=== PATIENT | male | born 1965 | race Caucasian/White ===

== ENCOUNTER 2017-02-09 18:25 | Observation (INO) ==
[2017-02-09 19:18] LABS: Basophils # 0.1 K/mcL (0.0-0.2); Basophils % 0.7 %; Eosinophils # 0.2 K/mcL (0.0-0.6); Hematocrit 44.1 % (37.5-50.1); Hemoglobin 15.7 g/dL (12.9-16.9); Immature Granulocytes % 0.3 % (0-4); Immature Platelets 8.7 % (1.1-6.1); Lymphocytes % 31.6 %; Mean Corpuscular HGB Conc 35.6 g/dL (31.6-35.5); Mean Corpuscular Hemoglobin 30.3 pg (28.0-33.3); Mean Platelet Volume 11.2 fL (9.4-12.4); Monocytes # 0.6 K/mcL (0.0-1.3); Monocytes % 6.1 %; Neutrophils # 5.6 K/mcL (1.6-8.9); Platelet Count 196 K/mcL (140-400); Red Blood Count 5.19 M/mcL (4.19-5.50); Red Cell Distribution Width 13.5 % (11.5-14.5); Segmented Neutrophils % 59.3 %
[2017-02-09 19:28] LABS: BUN/Creatinine Ratio 38 (6-26); Blood Urea Nitrogen 32 mg/dL (8-26); Calcium 9.4 mg/dL (8.6-10.8); Carbon Dioxide 22 mEq/L (19-29); Chloride 107 mEq/L (98-109); Glucose 136 mg/dL (70-99); Osmolality,Calculated 293 (280-300); Potassium 3.8 mEq/L (3.5-4.5); Sodium 137 mEq/L (136-145); eGFR For African Americans > 60 (> 60); eGFR For Non-African Americans > 60 (> 60)
--- NOTE | 2017-02-09 19:35 | Emergency Department Note ---
Disposition Clinical Impression: Chest pain Qualifiers: Chest pain type: unspecified Qualified Code(s): R07.9 - Chest pain, unspecified Aortic stenosis Qualifiers: Cardiac valve disease etiology: etiology unspecified Qualified Code(s): I35.0 - Nonrheumatic aortic (valve) stenosis Disposition: Admitted As Inpatient Condition: Fair Time of Disposition: 19:44 Chest Pain HPI - General Chief Complaint: ED Chest Pain Stated Complaint: CP Time Seen by Provider: 02/09/17 19:25 Source: patient, family Mode of arrival: ambulatory Limitations: language barrier Vital Signs Reviewed: Yes Nursing Notes Reviewed: Yes - History of Present Illness HPI Narrative: Patient developed substernal and left-sided chest pain yesterday while working at the [employer]. Described as "sharp" and "stinging". Pain spontaneously resolved. He developed the same discomfort again today. It did not radiate. He did have some associated dyspnea but no other symptoms. He has a history of some sort of unknown aortic valve problem for which surgical intervention was previously discussed. He is also a type I diabetic Pt complaint: chest pain Onset (ago): day(s) Duration: intermittent Onset: during exertion Pain Location: substernal, left chest Severity: moderate Severity scale (1-10): 7 Quality: aching Pain Radiation: none Improves with: nothing Worsens with: nothing Associated symptoms: Reports: diaphoresis, dyspnea Treatments prior to arrival chest pain: aspirin - Related Data Home Medications Medication Instructions Recorded Confirmed Aspirin Enteric Coated [Aspirin EC] 81 mg PO DAILY 01/04/15 02/09/17 Metformin [Glucophage] 1,000 mg PO BIDWM 01/04/15 02/09/17 GlipiZIDE [Glipizide Xl] 5 mg PO DAILY 02/09/17 02/09/17 Simvastatin [Zocor] 40 mg PO HS 02/09/17 02/09/17 Allergies Allergy/AdvReac Type Severity Reaction Status Date / Time No Known Allergies Allergy Verified 02/09/17 18:32 All systems ED: reviewed and negative except as stated. Constitutional: Reports: as per HPI Eyes: Reports: as per HPI ENT ED: Reports: as per HPI Cardiovascular: Reports: chest pain Respiratory: Reports: dyspnea Gastrointestinal: Reports: as per HPI Genitourinary: Reports: as per HPI Musculoskeletal: Reports: as per HPI Integumentary: Reports: as per HPI Neurological: Reports: as per HPI Psychiatric: Reports: as per HPI Endocrine: Reports: as per HPI Hematological/Lymphatic: Reports: as per HPI Allergic/Immunologic: Reports: as per HPI Chest Pain PMH - Past Medical History Medical history: Reports: coronary artery disease, diabetes, hyperlipidemia, hypertension Surgical history: Reports: non-contributory Psychiatric history: Reports: no psych history - Social History Smoking Status: Never smoker Alcohol use: Reports: occasionally Drug use: Reports: none Physical Exam - General Limitations: language barrier General appearance: alert, in no apparent distress - Head Head exam: atraumatic - Eye Eye exam: Present: normal appearance - ENT ENT exam: normal exam - Neck Neck exam: Present: normal inspection, full ROM - Chest Chest inspection: Present: normal inspection, symmetric chest wall rise - Respiratory Respiratory exam: Present: normal lung sounds bilaterally - Cardiovascular Cardiovascular exam: Present: regular rate, normal rhythm, systolic murmur - Rectal Exam Rectal exam: Present: deferred - Extremities Exam Extremities exam: Present: normal inspection - Neurological Exam Neurological exam: Present: alert, oriented X3, CN II-XII intact - Psychiatric Psychiatric exam: Present: normal affect, normal mood - Skin Skin exam: Present: warm, dry, intact Course Course Narrative: Patient presents with chest pain intermittently since yesterday. He is a primarily Wolof speaker but does speak some Puerto Rican and his is able to help translate. - Reevaluation(s) Reevaluation #1: I will request admission to the medicine service for chest pain evaluation. 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 The nurse will document accordingly. This was conveyed to the admitting team Reevaluation #3: Inventory Control/Shipping Receiving services used with the admitting nurse practitioner present Vital Signs Temperature 97.9 F 02/09/17 18:31 Pulse Rate 75 02/09/17 18:31 Respiratory Rate 16 02/09/17 18:31 Blood Pressure 139/77 02/09/17 18:31 O2 Sat by Pulse Oximetry 96 02/09/17 18:31 Temperature 97.9 F 02/09/17 18:31 Pulse Rate 56 02/09/17 19:43 Respiratory Rate 16 02/09/17 21:11 Blood Pressure 140/78 02/09/17 21:11 O2 Sat by Pulse Oximetry 97 02/09/17 19:43 Oxygen Delivery Oxygen Delivery Room Air Chest Pain - Medical Records Medical records reviewed: Yes I reviewed the patient's medical records. - Lab Data Lab results reviewed: Yes I reviewed the patient's lab results. Result diagrams: 02/09/17 19:11 02/09/17 19:11 Lab Results 02/09/17 02/09/17 02/09/17 Range/Units 19:11 19:11 19:11 WBC 9.5 (4.3-11.1) K/mcL RBC 5.19 (4.19-5.50) M/mcL Hgb 15.7 (12.9-16.9) g/dL Hct 44.1 (37.5-50.1) % MCV 85.0 (83.0-100.0) fL MCH 30.3 (28.0-33.3) pg MCHC 35.6 H (31.6-35.5) g/dL RDW 13.5 (11.5-14.5) % Plt Count 196 (140-400) K/mcL MPV 11.2 (9.4-12.4) fL Immature Gran % 0.3 (0-4) % Seg Neutrophils % 59.3 % Lymphocytes % 31.6 % Monocytes % 6.1 % Eosinophils % 2.0 % Basophils % 0.7 % Neutrophils # 5.6 (1.6-8.9) K/mcL Lymphocytes # 3.0 (0.6-4.6) K/mcL Monocytes # 0.6 (0.0-1.3) K/mcL Eosinophils # 0.2 (0.0-0.6) K/mcL Basophils # 0.1 (0.0-0.2) K/mcL Immature Plt Fraction 8.7 H (1.1-6.1) % Sodium 137 (136-145) mEq/L Potassium 3.8 (3.5-4.5) mEq/L Chloride 107 (98-109) mEq/L Carbon Dioxide 22 (19-29) mEq/L BUN 32 H (8-26) mg/dL Creatinine 0.85 (0.72-1.25) mg/dL Est GFR ( Amer) > 60 (> 60) Est GFR (Non-Af Amer) > 60 (> 60) BUN/Creatinine Ratio 38 H (6-26) Glucose 136 H (70-99) mg/dL Calculated Osmolality 293 (280-300) Calcium 9.4 (8.6-10.8) mg/dL Troponin I 0.03 (0-0.03) ng/mL - Radiology Data Radiology results reviewed: Yes I reviewed the patient's radiology results. - EKG Data EKG attestation: Yes I reviewed and interpreted this EKG. EKG results narrative: Sinus rhythm rate 75 NJ 170 QRS 94 QT/QTC 359/388 LAE
[2017-02-09] MEDS ORDERED: *HR* HYDROcodone/Acet 5/325 mg TABLET PO PRN (21:26)
[2017-02-09] MEDS ORDERED: Naloxone 0.4 MG/ML INJ IVP PRN (21:26)
[2017-02-09] MEDS ORDERED: Ondansetron 4 MG/2 ML VIAL IVP PRN (21:26)
[2017-02-09] MEDS ORDERED: *HR* Morphine 2 MG/ML SYRINGE IVP PRN (21:26)
[2017-02-09] MEDS ORDERED: Acetaminophen 325 MG TABLET PO PRN (21:26)
[2017-02-09] MEDS ORDERED: Dextrose Gel 15 GM PO PRN ×2 (21:31)
[2017-02-09] MEDS ORDERED: D5% in Water 1,000 ML IVC PRN (21:31)
[2017-02-09] MEDS ORDERED: Nitroglycerin 0.4 MG TAB.SUBL SL PRN (21:31)
[2017-02-09] MEDS ORDERED: *HR* Dextrose 50 % in Water (Syg) 50 ML SYRINGE IVP PRN (21:31)
--- NOTE | 2017-02-09 21:54 | Internal Med History&Physical ---
<Manjit Vickers - Last Filed: 02/09/17 22:32> Date of Encounter: 02/09/17 Time of Encounter: 20:30 Assessment and Plan (1) Chest pain Current visit: Yes Status: Acute Patient reports acute chest pain in the left chest for the past 24 hours that is non-radiating and he describes as poking/stinging. 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 Patient has hx of CAD, HTN, HLD, and DM. He states this happened 3-4 years ago and a heart catheterization was done by Dr. Mendoza. Patient was referred to [facility] and states there was a problem with his aortic valve but no surgery was performed. Records from [facility] ordered. He does not take nitroglycerin currently and did not take any today. Takes 81 mg aspirin daily. Will continue aspirin therapy and simvastatin. Initial troponin 0.03. Will trend x2. Echocardiogram ordered. NPO at midnight for a.m. testing. Nuclear pharm stress test ordered. Patient placed on continuous cardiac telemetry. Qualifiers: Chest pain type: other chest pain Qualified Code(s): R07.89 - Other chest pain; R07.8 - Other chest pain (2) Diabetes Current visit: Yes Status: Acute Hx of chronic diabetes that the patient states was controlled by insulin and oral anti-hyperglycemic medications. Now only controlled with oral medications. Will hold patient's glipizide and metformin and administer low-dose correction insulin sliding scale and hypoglycemic protocol. BG checks ACHS. A1c ordered in a.m. labs. Qualifiers: Diabetes mellitus type: type 2 Diabetes mellitus complication status: with unspecified complications Diabetes mellitus terminal gauger insulin use: without terminal gauger use Qualified Code(s): E11.8 - Type 2 diabetes mellitus with unspecified complications (3) HLD (hyperlipidemia) Current visit: Yes Status: Chronic Hx of chronic HLD. Lipid panel ordered in a.m. labs. Continue patient's simvastatin. Qualifiers: Hyperlipidemia type: pure hypercholesterolemia Qualified Code(s): E78.00 - Pure hypercholesterolemia, unspecified; E78.0 - Pure hypercholesterolemia (4) HTN (hypertension) Current visit: Yes Status: Chronic Hx of chronic HTN. Patient reports hx of HTN but does not currently take any anti-hypertension medications. Monitor patient and VS. Will consider adding HTN medication if patient becomes hypertensive. Qualifiers: Hypertension type: essential hypertension Qualified Code(s): I10 - Essential (primary) hypertension (5) DVT prophylaxis Current visit: Yes Status: Acute Heparin 5,000 units SQ Q8 for DVT prophylaxis. Internal Medicine - H&P: HPI Chief complaint: Chest pain Admitted From: Emergency Dept Plans for Post Hospital Care: Home History of present illness: Mr. Cunninhgam is a 51 year old male with medical history of CAD, diabetes, HLD, and HTN presents from the ED with chief complaint of chest pain that he describes as left-sided and non-radiating. Patient speaks some Surinamese but primarily Greenlandic, so a phone quarry supervisor open pit was used during assessment. He describes the pain as a poking or stinging feeling in his chest that came on with exertion while he was working in the [employer] yard. The last time this occurred was 5 years ago. He states that he was seen by Dr. Mendoza 3-4 years ago for a heart catheterization that was done without stent placement. He was referred to [facility] at that time but no surgery was done at that time. There is some confusion regarding a possible aortic valve problem in the past but no medical records currently confirm this. Patient states that he sees someone at [facility] annually and that it is a different person each time. Patient reports chest pain, diaphoresis, shortness of breath, and mild nausea but denies recent illness, fever, chills, vomiting, headache, changes in vision, palpitations, lightheadedness, dizziness, diarrhea, constipation, abdominal pain , unusual bleeding, pre-syncope, or syncope. 2 view CXR today shows lungs are clear, heart is enlarged; no acute fracture, dislocation, or bony destructive process. Upon admission, patient's vital signs include temperature 97.9 F, heart rate of 75 bpm, respiratory rate of 16, BP of 139/77, and SPO2 of 96% on room air. Pertinent abnormal labs include BUN of 32 and glucose of 136. Initial troponin 0.03. On examination, patient is alert and oriented 3 and confirms he is not currently having chest pain. On examination, heart rate is RRR and lungs are clear bilaterally on auscultation. Mr. Cunningham is currently hemodynamically stable and reports no acute distress. Mr. Cunningham is at high risk for further morbidity and cardiac event based on current symptoms, history of previous chest pain and intervention, and risk factors and will be placed as observation status. Time spent with patient and family >40 minutes. Past Med Surg Social Fam HX - Past Medical History Source: patient, old records reviewed, obtained from family Medical history: coronary artery disease, diabetes, hyperlipidemia, hypertension Psychiatric history: no psych history - Past Surgical History Surgical History: orthopedic, other (Left hand) - Social History Smoking Status: Former smoker Packs per day: 2 packs per week - reports quitting 3 to 4 years ago Smokeless Tobacco Status: No Alcohol use: occasionally Drug use: none Occupational status: employed Current living situation: Home, With Family Activity Level: Independent ambulation Recent Out of Country Travel Within the Last 8 Weeks: No Exposure or Possible Exposure to Illness During Travel: No - Family History Father Race: / Family Member Ethnicity: Living Status: Still Living Hx Family Medical Disorders: No Mother History Unknown: Yes Race: / Family Member Ethnicity: Living Status: Age at : 28 Cause of : Childbirth Sister Race: / Family Member Ethnicity: Living Status: Still Living Hx Family Medical Disorders: No Internal Medicine - H&P: Meds Aspirin Enteric Coated [Aspirin EC] 81 mg PO DAILY 01/04/15 [History] Metformin [Glucophage] 1,000 mg PO BIDWM 01/04/15 [History] GlipiZIDE [Glipizide Xl] 5 mg PO DAILY 02/09/17 [History] Simvastatin [Zocor] 40 mg PO HS 02/09/17 [History] 3 Allergy/AdvReac Type Severity Reaction Status Date / Time No Known Allergies Allergy Verified 02/09/17 18:32 All Systems PM: A 10-system review of systems was performed and is negative for pertinent findings except as documented above in the HPI. - Constitutional Constitutional: no chills, no fever(s), no night sweats - EENT Eyes: no change in vision, no discharge, no pain, no photophobia Ears: no ear discharge, no ear pain, no tinnitus Nose, mouth and throat: no dysphagia, no nasal discharge, no neck pain, no sore throat - Breasts Breasts: as per HPI - Cardiovascular Cardiovascular ROS IM: as per HPI, chest pain, diaphoresis, dyspnea - Respiratory Respiratory: as per HPI, dyspnea - Gastrointestinal Gastrointestinal: no abdominal pain, no diarrhea, no hematemesis, no hematochezia, no melena, no nausea, no vomiting - Genitourinary Genitourinary ROS male: as per HPI - Musculoskeletal Musculoskeletal ROS IM: no numbness, no tingling - Integumentary Integumentary IM: no rash, no unusual bruising - Neurological Neurological ROS: no confusion, no convulsions, no focal weakness, no numbness, no tingling, no tremor(s) - Psychiatric Psychiatric: as per HPI - Endocrine Endocrine IM: as per HPI - Hematologic/Lymphatic Hematologic/Lymphatic: no easy bruising - Allergic/Immunologic Allergic/Immunologic: as per HPI - Constitutional Vitals: Temp Pulse Resp BP Pulse Ox 97.9 F 56 16 140/78 97 02/09/17 18:31 02/09/17 19:43 02/09/17 21:11 02/09/17 21:11 02/09/17 19:43 General appearance: Present: cooperative, A&O X 3, pleasant, no acute distress, obese, answers questions appropriately - Head Head exam: Present: atraumatic, normocephalic - Eye Eye exam: Present: PERRL, conjuntiva pink, sclera anicteric Pupils: Present: PERRL - ENT ENT exam: Present: normal exam, normal external ear exam - Neck Neck exam general surgery: Present: normal inspection, supple, trachea midline - Respiratory Respiratory exam: Present: CTAB. Absent: accessory muscle use, rales, rhonchi, wheezes - Cardiovascular Cardiovascular exam: Present: RRR, +S1, +S2. Absent: diastolic murmur, gallop, rubs, systolic murmur - GI/Abdominal GI/Abdominal exam: Present: normal bowel sounds, soft, no peritoneal signs. Absent: distended, tenderness - Rectal Rectal exam: Present: deferred - Additional comments: exam deferred. - Extremities Exam Extremities exam: Present: warm, radial pulses palpable and symmetrical. Absent : calf tenderness, cyanotic, pedal edema - Back Exam Back exam: Present: normal inspection - Neurological Exam Neurological exam: Present: CN II-XII intact, oriented X3, no focal deficits. Absent: pronater drift, facial droop, speech deficit - Psychiatric Psychiatric exam: Present: normal affect, normal mood - Skin Skin exam: Present: dry, intact Internal Med - H&P Results - Labs CBC & Chem 7: 02/09/17 19:11 02/09/17 19:11 - EKG Data EKG shows normal: sinus rhythm - EKG Data Prior EKG available for review: no EKG comments: 02/09/17 21:59 EKG dated 02/09/17 shows sinus rhythm with possible left atrial enlargement and nonspecific T-wave abnormality. Borderline ECG. - Diagnostic Studies Chest x-ray Additional comments: Impressions Chest X-Ray 02/09/17 18:27 IMPRESSION: Cardiomegaly without acute process. D/ : / 02/09/2017 18:56:53 Owen Goel MD / [email or web address] Interpreting Provider: Owen Goel MD <Cristiano Feldman - Last Filed: 02/10/17 01:21> Date of Encounter: 02/09/17 Internal Medicine - H&P: HPI History of present illness: Mr. Cunningham is a 51 year old male All Systems PM: A 10-system review of systems was performed and is negative for pertinent findings except as documented above in the HPI. - Constitutional Vitals: Temp Pulse Resp BP Pulse Ox 97.7 F 53 15 152/83 97 02/09/17 22:01 02/09/17 22:01 02/09/17 22:01 02/09/17 22:01 02/09/17 22:01 Internal Med - H&P Results - Labs CBC & Chem 7: 02/10/17 00:46 02/10/17 00:46 Labs: Short CBC 02/10/17 Range/Units 00:46 WBC 7.2 (4.3-11.1) K/mcL Hgb 16.0 (12.9-16.9) g/dL Hct 45.3 (37.5-50.1) % Plt Count 201 (140-400) K/mcL Neutrophils # 3.5 (1.6-8.9) K/mcL BMP 02/10/17 00:46 Sodium 139 Potassium 3.4 L Chloride 107 Carbon Dioxide 25 BUN 30 H Creatinine 0.80 Glucose 84 Calcium 9.4 Liver Function 02/10/17 Range/Units 00:46 Total Bilirubin 0.6 (0.2-1.2) mg/dL AST 26 (5-34) Units/L ALT 38 (0-55) Units/L Alkaline Phosphatase 107 (38-126) Units/L Albumin 4.0 (3.5-5.0) g/dL - Attending Attestation Patient seen and examined independently. Came in with chest pain multiple risk factors chest pain improved with with rest. Pretest probability is pretty high therefore asked to schedule perfusion as the stress test in the morning. Keep patient on aspirin for now.
[2017-02-10 01:00] LABS: Basophils # 0.1 K/mcL (0.0-0.2); Basophils % 0.8 %; Eosinophils # 0.2 K/mcL (0.0-0.6); Eosinophils % 3.2 %; Hematocrit 45.3 % (37.5-50.1); Immature Granulocytes % 0.3 % (0-4); Lymphocytes # 2.8 K/mcL (0.6-4.6); Lymphocytes % 39.1 %; Mean Corpuscular HGB Conc 35.3 g/dL (31.6-35.5); Mean Corpuscular Volume 84.8 fL (83.0-100.0); Mean Platelet Volume 11.2 fL (9.4-12.4); Monocytes # 0.6 K/mcL (0.0-1.3); Neutrophils # 3.5 K/mcL (1.6-8.9); Platelet Count 201 K/mcL (140-400); Red Blood Count 5.34 M/mcL (4.19-5.50); Red Cell Distribution Width 13.7 % (11.5-14.5); Segmented Neutrophils % 48.6 %
[2017-02-10 01:07] LABS: Activated Partial Thrombo Time 34.4 Seconds (26.0-36.0)
[2017-02-10 01:13] LABS: Alanine Aminotransferase 38 Units/L (0-55); Albumin/Globulin Ratio 1.4 (1.1-2.2); Alkaline Phosphatase 107 Units/L (38-126); Aspartate Amino Transferase 26 Units/L (5-34); BUN/Creatinine Ratio 38 (6-26); Bilirubin,Total 0.6 mg/dL (0.2-1.2); Blood Urea Nitrogen 30 mg/dL (8-26); Calcium 9.4 mg/dL (8.6-10.8); Carbon Dioxide 25 mEq/L (19-29); Chloride 107 mEq/L (98-109); Chol/HDL Ratio 3.1 (0-4.9); Cholesterol 129 mg/dL (< 200); Globulin 2.9 g/dL (2.4-3.5); Glucose 84 mg/dL (70-99); HDL Cholesterol 42 mg/dL (40-59); LDL Cholesterol,Calculated 71 mg/dL (0-99); Osmolality,Calculated 293 (280-300); Potassium 3.4 mEq/L (3.5-4.5); Sodium 139 mEq/L (136-145); Total Protein 6.9 g/dL (6.0-8.3); Triglycerides 81 mg/dL (< 150); eGFR For African Americans > 60 (> 60); eGFR For Non-African Americans > 60 (> 60)
[2017-02-10] MEDS: *HR* Heparin 5,000 UNIT/ML VIAL SQ SCH ×3 (01:20→16:09)
[2017-02-10] MEDS: Pantoprazole 40 MG VIAL IVP SCH ×2 (01:20→08:43)
[2017-02-10] MEDS ORDERED: Regadenoson 0.4 MG/5 ML SYRINGE IVP ONE (06:14)
[2017-02-10 08:29] VITALS: BP 125/69
[2017-02-10] MEDS: Insulin LISPRO 300 UNITS/3 ML VIAL SQ SCH ×2 (08:43→11:56)
[2017-02-10] MEDS ORDERED: Aspirin Enteric Coated 81 MG Tablet PO SCH (09:00)
--- NOTE | 2017-02-10 09:40 | Internal Med Progress Note ---
Date of Encounter: 02/10/17 Time of Encounter: 09:37 - Assessment and plan (1) Chest pain Current Visit: Yes Status: Acute Assessment and plan: Lisandro Cunningham is a 51-year-old male with past med aortic stenosis and diabetes who presented to [facility] on 02/09/2017 with complaints of chest pain. He was placed in observation status for further workup and treatment. 1. Chest pain: with left sided chest pain that started 24 hours prior to presentation; chest pain described as poking/stinging and non-radiating. Chest pain occurred with exertion at job in the [employer] yard and relieved with rest. Troponin peaked at 0.04 and trended down. EKG without acute ST changes. 2013 LCH at [facility] showed minimal CAD, EF 55%. Stress test, echo pending. Continue home ASA, statin. Consult cardiology if needed. 2. Aortic stenosis: per hx. 10/2012T PETER with evidence of moderate to severe aortic stenosis. He was evaluated by Dr. Nino (CTS at [facility]) who recommended repeat echo in 6 months and to be sent back to Dr. Nino when/ if surgery was needed. Unclear if patient has followed up. Repeat echo pending. 3. Diabetes: per hx. Control unknown. Holding home oral hypoglycemics. SSI. Monitor blood sugar and titrate PRN. Hgb A1c pending 4. 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 Information obtained from chart review and patient report. Patient's primary language is Nepalese, speaks a little Andorran. History is difficult to obtain due to language barrier. No leasing director or family at bedside. Room Service Server was requested per nursing staff. I am able to make out that he had chest pain and that the reason why he came to the hospital. Denies chest pain on my exam, no shortness of breath. - Constitutional Vitals: Temp Pulse Resp BP Pulse Ox 97.6 F 63 18 125/69 96 02/10/17 08:21 02/10/17 08:21 02/10/17 08:21 02/10/17 08:21 02/10/17 08:21 General appearance: Present: cooperative, A&O X 3, pleasant, no acute distress, obese, answers questions appropriately - Head Head exam: Present: atraumatic, normocephalic - Eye Eye exam: Present: PERRL, conjuntiva pink, sclera anicteric Pupils: Present: PERRL - Neck Neck exam general surgery: Present: supple, trachea midline. Absent: lymphadenopathy - Respiratory Respiratory exam: Present: CTAB. Absent: accessory muscle use, rales, rhonchi, wheezes - Cardiovascular Cardiovascular exam: Present: RRR, +S1, +S2. Absent: gallop, rubs Additional comments: + murmur - GI/Abdominal GI/Abdominal exam: Present: normal bowel sounds, soft, no peritoneal signs. Absent: distended, tenderness - Extremities Exam Extremities exam: Present: warm, radial pulses palpable and symmetrical. Absent : calf tenderness, cyanotic, pedal edema - Neurological Exam Neurological exam: Present: CN II-XII intact, oriented X3, no focal deficits. Absent: pronater drift, facial droop, speech deficit - Skin Skin exam: Present: dry, intact Internal Medicine: Result - Labs CBC & Chem 7: 02/10/17 00:46 02/10/17 00:46 Labs: Short CBC 02/10/17 Range/Units 00:46 WBC 7.2 (4.3-11.1) K/mcL Hgb 16.0 (12.9-16.9) g/dL Hct 45.3 (37.5-50.1) % Plt Count 201 (140-400) K/mcL Neutrophils # 3.5 (1.6-8.9) K/mcL BMP 02/10/17 00:46 Sodium 139 Potassium 3.4 L Chloride 107 Carbon Dioxide 25 BUN 30 H Creatinine 0.80 Glucose 84 Calcium 9.4 Cardiac Enzymes 02/10/17 02/10/17 Range/Units 00:46 06:45 Troponin I 0.04 H* 0.03 (0-0.03) ng/mL Liver Function 02/10/17 Range/Units 00:46 Total Bilirubin 0.6 (0.2-1.2) mg/dL AST 26 (5-34) Units/L ALT 38 (0-55) Units/L Alkaline Phosphatase 107 (38-126) Units/L Albumin 4.0 (3.5-5.0) g/dL - ABG Interpretation ABG results: PT/INR, D-dimer PT 11.0 Seconds (9.4-12.1) 02/10/17 00:46 - Diagnostic Studies Other Images Additional comments: Received and reviewed records from [facility] from 06/2013 visit when he was evaluated by cardiothoracic surgery for aortic stenosis. Consult Discharge Plan - Plan Referrals: Zain Altman DO [Resident] -
--- NOTE | 2017-02-10 14:05 | Nuclear Medicine Stress Report ---
Low Level Regadenoson Name: Lisandro Cunningham Date of Study: 02/10/2017 Date: 1965 Ht: 64.0 in Medical Record#: [id number] Age: 51 Wt: 170.0 lb Gender: Male Order #: [id number] Location: [facility] Room: [facility] Supervising Provider: Elizabeth Orourke CNP Reading Physician: Koby Melgar MD, [facility] Ordering Physician: Polo Coughlin MD Stress Technologist: Cara Fernandez, CIRCUIT WALKER, CCT, CPFT Public Policy Analyst: Luzma Solis Indications: Chest Pain Impression: No significant ECG changes with regadenoson and low level exercise. Gated LVEF = 56%. Perfusion imaging was negative for ischemia or infarct. History: Diabetes Stress Test Summary: Stress Test Type: Low level pharmacologic Regadenoson 0.4mg/5ml given IV Baseline Information: Initial Heart Rate: 56 Blood Pressure: 130/72 Stress Information: Stress Time: 4 min 00 sec Test Terminated Due to (primary): As per protocol Maximum Blood Pressure: 152/76 Maximum Heart Rate: 102 Percent Maximum Heart Rate Achieved: 60 Double Product: 26006 METS Reached: 2.1 Symptoms: Shortness of breath Nuclear Summary: SPECT myocardial perfusion imaging using Tc99m Sestamibi given intravenously was performed at rest and following cardiac stress testing. The resting images were obtained following initial dose of 11.4 mCi. Following stress an additional dose of 29.5 mCi was given at peak exercise or 30 seconds post regadenoson infusion. Findings: Stress Note * Resting ECG demonstrated sinus bradycardia, possible LVH, non-specific ST-T wave abnormality. * No baseline arrhythmias were noted. * Patient had no chest pain during stress. * No arrhythmias were noted during stress. * No significant ECG changes with regadenoson and low level exercise. Hemodynamic responses * Normal hemodynamic responses to low level exercise plus pharmacologic stress. Study Quality * Study quality is good. Gated EF % * Gated LVEF = 56%. Left Ventricle * The left ventricle is not dilated. * Normal Segmental Perfusion in rest. * Normal segmental perfusion in stress. TID * No evidence of transient ischemic dilatation. Updated by Koby Melgar MD, [facility] on 02/10/2017 1:59:27 PM electronically signed on 02/10/2017 1:59:45 PM with status of Final
--- NOTE | 2017-02-10 15:21 | Discharge Summary ---
Date of Encounter: 02/10/17 Time of Encounter: 15:12 - Discharge Diagnosis (1) Chest pain Priority: Primary Status: Acute Comments: Lisandro Cunningham is a 51-year-old male with past med aortic stenosis and diabetes who presented to [facility] on 02/09/2017 with complaints of chest pain. He was placed in observation status for ACS. He underwent a stress test which was negative for ischemia he was discharged home in stable condition with outpatient follow-up. 1. Atypical chest pain: with left sided chest pain that started 24 hours prior to presentation; chest pain described as poking/stinging and non-radiating. Chest pain occurred with exertion at job in [employer] and relieved with rest. Troponin peaked at 0.04 and trended down. EKG without acute ST changes. 2013 [facility] showed minimal CAD, EF 55%. Stress test negative for ischemia, TTE with EF 60% and known aortic stenosis. Transient, adynamic elevation in troponin possibly secondary to left ventricular hypertrophy as noted on TTE. Suspect chest pain musculoskeletal as it occurred with exertion and subsided with rest. Patient advised to return to hospital if has chest pain recurrence. Continue home ASA, statin. Recommend outpatient follow-up with primary bookmobile librarian within 1 week of discharge. 2. Aortic stenosis: per hx. 10/2012T PETER with evidence of moderate to severe aortic stenosis. He was evaluated by Dr. Nino (CTS at [facility]) who recommended continued surveillance echoes and return when/if surgery was needed. Repeat echo with EF 60-65%, probable bicuspid aortic valve and moderate to severe aortic stenosis (moderate based on transvalvular gradient, borderline severe based on calculated aortic valve area which was thought to be underestimated on this echo). Patient is asymptomatic, denies lightheadedness dizziness, no near syncope or syncopal episodes. No urgent indication for valve intervention. We will schedule follow-up with cardiology within 1 week of discharge. 3. Diabetes: per hx. resume home diabetes medication regimen. Qualifiers: Chest pain type: unspecified Qualified Code(s): R07.9 - Chest pain, unspecified (2) Aortic stenosis Priority: Primary Status: Acute Qualifiers: Cardiac valve disease etiology: etiology unspecified Qualified Code(s): I35.0 - Nonrheumatic aortic (valve) stenosis (3) Diabetes Priority: Primary Status: Acute Qualifiers: Diabetes mellitus type: type 2 Diabetes mellitus complication status: with unspecified complications Diabetes mellitus nursing home insulin use: without moth exterminator use Qualified Code(s): E11.8 - Type 2 diabetes mellitus with unspecified complications (4) HLD (hyperlipidemia) Priority: Primary Status: Chronic Qualifiers: Hyperlipidemia type: pure hypercholesterolemia Qualified Code(s): E78.00 - Pure hypercholesterolemia, unspecified; E78.0 - Pure hypercholesterolemia - Discharge Medications Home Medications: Aspirin Enteric Coated [Aspirin EC] 81 mg PO DAILY 01/04/15 [History] Metformin [Glucophage] 1,000 mg PO BIDWM 01/04/15 [History] GlipiZIDE [Glipizide Xl] 5 mg PO DAILY 02/09/17 [History] Simvastatin [Zocor] 40 mg PO HS 02/09/17 [History] Allergies/Adverse Reactions: 3 Allergy/AdvReac Type Severity Reaction Status Date / Time No Known Allergies Allergy Verified 02/09/17 18:32 Procedures/tests Complete & Pending: Procedures Performed prior 72 hours Category Date Time Status NM anoop perf SPECT multi [NM] Routine Exams 02/09/17 21:41 Taken EV echocardiogram Stat Y 02/10/17 21:31 Completed SP pharm nuclear stress Stat Y 02/10/17 07:30 Completed Date of admission: 02/09/17 20:42 Primary care physician: PCP NONE Consults: 02/09/17 21:30 Consult to Long Term Care Pharmacist [CONS] Routine Reason for SW Consult: Assess patient for possible home needs and concerns for port-discharge planning Discharging clinician: Becky De Leon Anticipated date of discharge: 02/10/17 - Patient Status Disposition: Home, Self-Care Condition: Good Functional capacity at discharge: independent ambulation Overall status at discharge: patient is back to baseline - Discharge Instructions Follow Up With: Zain Altman DO [Resident] - - Diet and Activity Activity: resume usual activities as tolerated Diet: advance to your usual diet, low fat, low cholesterol Interval History: See 02/10/17 progress note Hospital course: Mr. Cunningham is a 51 year old male - Time Spent with Patient Total time spent providing and/or coordinating discharge services: - Constitutional Vitals: Temp Pulse Resp BP Pulse Ox 97.6 F 63 18 125/69 96 02/10/17 08:21 02/10/17 08:21 02/10/17 08:21 02/10/17 08:21 02/10/17 08:21 General appearance: Present: cooperative, A&O X 3, pleasant, no acute distress, obese, answers questions appropriately - Head Head exam: Present: atraumatic, normocephalic - Eye Eye exam: Present: PERRL, conjuntiva pink, sclera anicteric Pupils: Present: PERRL - Neck Neck exam general surgery: Present: supple, trachea midline. Absent: lymphadenopathy - Respiratory Respiratory exam: Present: CTAB. Absent: accessory muscle use, rales, rhonchi, wheezes - Cardiovascular Cardiovascular exam: Present: RRR, +S1, +S2. Absent: diastolic murmur, gallop, rubs, systolic murmur - GI/Abdominal GI/Abdominal exam: Present: normal bowel sounds, soft, no peritoneal signs. Absent: distended, tenderness - Extremities Exam Extremities exam: Present: warm, radial pulses palpable and symmetrical. Absent : calf tenderness, cyanotic, pedal edema - Neurological Exam Neurological exam: Present: CN II-XII intact, oriented X3, no focal deficits. Absent: pronater drift, facial droop, speech deficit - Skin Skin exam: Present: dry, intact
[2017-02-10 16:58] LABS: Hemoglobin A1C 5.6 %
--- NOTE | 2017-02-10 20:16 | Electrocardiograph Report ---
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
[2017-02-10] MEDS ORDERED: Insulin LISPRO 300 UNITS/3 ML VIAL SQ SCH (21:00)
== END 2017-02-10 16:57 | disposition home or self-care (01) ==
LOC: 3ANU 18:25 → EMEROO 18:25 → 3ANU 21:12
PROVIDERS: ADMIT Internal Medicine; ATTEND Internal Medicine

== ENCOUNTER 2021-06-18 06:38 | Inpatient (IN) ==
[2021-06-18] MEDS ORDERED: CeFAZolin Syr 2,000MG/20 ML 2,000 MG/20 ML SYRINGE IVPB ONE (06:48)
[2021-06-18] MEDS ORDERED: Aspirin 81 MG TAB.CHEW PO ONE ×2 (06:49→13:07)
[2021-06-18] MEDS ORDERED: Ringers Solution, Lactated 1,000 ML IVC SCH (07:00)
[2021-06-18] MEDS ORDERED: Papaverine 60 MG/2 ML VIAL IVP ONE (07:04)
[2021-06-18] MEDS ORDERED: Vancomycin 1,000 MG VIAL ONE (07:04)
[2021-06-18] MEDS ORDERED: 0.9 % Sodium Chloride 250 ML ONE (07:31)
[2021-06-18] MEDS ORDERED: NiCARdipine 2.5 MG/10 ML Syringe IVPB ONE (07:38)
[2021-06-18] MEDS ORDERED: *HR* Vasopressin 20 UNIT/ML VIAL ONE (07:38)
[2021-06-18] MEDS ORDERED: Chlorhexidine Rinse 15 ML MOUTHWASH MM SCH ×3 (07:45→21:00)
[2021-06-18 08:00] LABS: ABG Base Excess -2 mEq/L (-2 to 3); ABG Chloride 105 mEq/L (98-107); ABG Glucose 153 mg/dL (60-95); ABG HCO3 26 mEq/L (21-27); ABG Ionized Calcium 1.32 mmol/L (1.15-1.35); ABG Oxygen Saturation 100 % (95-98); ABG PCO2 57 mmHg (35-45); ABG PH 7.28 pH Units (7.32-7.45); ABG PO2 514 mmHg (85-104); ABG TCO2 28 mEq/L (20-26)
[2021-06-18 08:58] LABS: ABG Base Excess 0 mEq/L (-2 to 3); ABG Chloride 107 mEq/L (98-107); ABG Glucose 125 mg/dL (60-95); ABG HCO3 25 mEq/L (21-27); ABG Ionized Calcium 1.14 mmol/L (1.15-1.35); ABG Oxygen Saturation 100 % (95-98); ABG PCO2 41 mmHg (35-45); ABG PH 7.39 pH Units (7.32-7.45); ABG PO2 219 mmHg (85-104); ABG TCO2 26 mEq/L (20-26)
[2021-06-18] MEDS ORDERED: Calcium Gluconate 1,000 MG/10 ML VIAL ONE (09:00)
[2021-06-18] MEDS ORDERED: *HR* Heparin 10,000 UNIT/10 ML VIAL ONE (09:00)
[2021-06-18] MEDS ORDERED: *HR* Magnesium Sulfate 2 GM/50 ML PIGGYBACK IVPB ONE (09:00)
[2021-06-18] MEDS ORDERED: Albumin Human 25% 25 GM/100 ML IV.SOLN ONE (09:00)
[2021-06-18] MEDS ORDERED: Sodium Bicarbonate 50 MEQ/50 ML VIAL ONE (09:00)
[2021-06-18] MEDS ORDERED: *HR* Phenylephrine 10 MG/ML VIAL ONE (09:00)
[2021-06-18] MEDS ORDERED: Buckersberg's Blood Cardioplegia PF SCH (09:30)
[2021-06-18 10:17] LABS: ABG Base Excess -2 mEq/L (-2 to 3); ABG Chloride 108 mEq/L (98-107); ABG Glucose 160 mg/dL (60-95); ABG HCO3 22 mEq/L (21-27); ABG Ionized Calcium 1.04 mmol/L (1.15-1.35); ABG Oxygen Saturation 100 % (95-98); ABG PCO2 36 mmHg (35-45); ABG PO2 455 mmHg (85-104); ABG TCO2 23 mEq/L (20-26)
[2021-06-18 10:30] LABS: ABG Base Excess 1 mEq/L (-2 to 3); ABG Chloride 108 mEq/L (98-107); ABG Glucose 170 mg/dL (60-95); ABG HCO3 26 mEq/L (21-27); ABG Ionized Calcium 1.01 mmol/L (1.15-1.35); ABG Oxygen Saturation 100 % (95-98); ABG PCO2 41 mmHg (35-45); ABG PO2 439 mmHg (85-104); ABG TCO2 27 mEq/L (20-26)
[2021-06-18 11:01] LABS: ABG Base Excess -4 mEq/L (-2 to 3); ABG Chloride 111 mEq/L (98-107); ABG Glucose 218 mg/dL (60-95); ABG HCO3 23 mEq/L (21-27); ABG Ionized Calcium 1.07 mmol/L (1.15-1.35); ABG Oxygen Saturation 100 % (95-98); ABG PCO2 44 mmHg (35-45); ABG PH 7.32 pH Units (7.32-7.45); ABG PO2 399 mmHg (85-104); ABG TCO2 24 mEq/L (20-26)
[2021-06-18 11:03] LABS: VBG Base Excess -4 mEq/L; VBG Chloride 112 mEq/L (98-107); VBG Glucose 215 mg/dl (65-95); VBG HCO3 22 mEq/L (21-27); VBG Ionized Calcium 1.09 mmol/L (1.15-1.35); VBG Oxygen Saturation 100 %; VBG PCO2 44 mmHg (41-51); VBG PH 7.31 pH Units (7.32-7.42); VBG PO2 396 mmHg (25-50); VBG Total CO2 24 mEq/L
[2021-06-18 11:41] LABS: ABG Base Excess -3 mEq/L (-2 to 3); ABG Chloride 112 mEq/L (98-107); ABG Glucose 226 mg/dL (60-95); ABG HCO3 23 mEq/L (21-27); ABG Ionized Calcium 1.33 mmol/L (1.15-1.35); ABG Oxygen Saturation 100 % (95-98); ABG PCO2 43 mmHg (35-45); ABG PH 7.33 pH Units (7.32-7.45); ABG PO2 451 mmHg (85-104); ABG TCO2 24 mEq/L (20-26)
[2021-06-18 12:12] LABS: ABG Base Excess -2 mEq/L (-2 to 3); ABG Chloride 111 mEq/L (98-107); ABG Glucose 194 mg/dL (60-95); ABG HCO3 23 mEq/L (21-27); ABG Ionized Calcium 1.24 mmol/L (1.15-1.35); ABG Oxygen Saturation 100 % (95-98); ABG PCO2 40 mmHg (35-45); ABG PH 7.38 pH Units (7.32-7.45); ABG PO2 390 mmHg (85-104); ABG TCO2 24 mEq/L (20-26)
[2021-06-18 12:37] LABS: ABG Base Excess -2 mEq/L (-2 to 3); ABG Chloride 113 mEq/L (98-107); ABG Glucose 179 mg/dL (60-95); ABG HCO3 23 mEq/L (21-27); ABG Ionized Calcium 1.15 mmol/L (1.15-1.35); ABG Oxygen Saturation 100 % (95-98); ABG PCO2 38 mmHg (35-45); ABG PH 7.39 pH Units (7.32-7.45); ABG PO2 309 mmHg (85-104); ABG TCO2 24 mEq/L (20-26)
[2021-06-18] MEDS ORDERED: Ondansetron 4 MG/2 ML VIAL IVP PRN ×2 (12:52→19:39)
[2021-06-18] MEDS ORDERED: Acetaminophen 325 MG TABLET PO PRN (12:52)
[2021-06-18] MEDS ORDERED: *HR* FentaNYL (PF) 100 MCG/2 ML VIAL IVP PRN (12:52)
[2021-06-18] MEDS ORDERED: *HR* OxyCODONE/APAP 5/325 TABLET PO PRN (12:52)
[2021-06-18] MEDS ORDERED: Potassium Chloride 40 MEQ/200 ML BAG IVPB PRN ×2 (12:52→13:46)
[2021-06-18] MEDS ORDERED: *HR* Promethazine 25 MG/ML VIAL IM PRN (12:52)
[2021-06-18] MEDS ORDERED: Insulin Regular, Human 100 UNIT/ML IV PRN ×2 (12:52→13:46)
[2021-06-18] MEDS ORDERED: *HR* Dextrose 50 % in Water (Syg) 50 ML SYRINGE IVP PRN ×2 (12:52→13:46)
[2021-06-18] MEDS ORDERED: niCARdipine 20 MG/200 ML MLS IVC SCH (13:00)
[2021-06-18 13:18] LABS: ABG Base Excess -2 mEq/L (-2 to 3); ABG HCO3 24 mEq/L (21-27); ABG Oxygen Saturation 100 % (95-98); ABG PCO2 44 mmHg (35-45); ABG PH 7.34 pH Units (7.32-7.45); ABG PO2 228 mmHg (85-104); ABG TCO2 25 mEq/L (20-26); Blood Gas Modality ASSIST CONTROL; Blood Gas VT 500 cc
[2021-06-18 13:33] LABS: Hematocrit 38.1 % (37.5-50.1)
[2021-06-18 13:41] LABS: INR 1.4; Prothrombin Time 15.9 Seconds (9.4-12.1)
[2021-06-18 13:44] LABS: Activated Partial Thrombo Time 28.7 Seconds (26.0-36.0)
[2021-06-18] MEDS ORDERED: Calcium Gluconate 1gm/50mL 1 GM/50 ML BAG IVPB PRN (13:46)
[2021-06-18] MEDS ORDERED: Norepinephrine 4 MG in 0.9 % Sodium Chloride 250 ML IVC PRN (13:56)
[2021-06-18] MEDS: Norepinephrine 4 MG/254 ML IV.SOLN IVC SCH (14:00)
[2021-06-18] MEDS: Pantoprazole 40 MG VIAL IVP SCH (14:44)
[2021-06-18] MEDS: Albumin Human 5% 12.5 GM/250 ML IV.SOLN IVPB PRN ×3 (15:14→16:54)
[2021-06-18 15:32] LABS: ABG Base Excess -3 mEq/L (-2 to 3); ABG Chloride 103 mEq/L (98-107); ABG Glucose 84 mg/dL (60-95); ABG HCO3 21 mEq/L (21-27); ABG Ionized Calcium 1.14 mmol/L (1.15-1.35); ABG Oxygen Saturation 100 % (95-98); ABG PCO2 35 mmHg (35-45); ABG PH 7.39 pH Units (7.32-7.45); ABG PO2 172 mmHg (85-104); ABG TCO2 22 mEq/L (20-26)
[2021-06-18 15:46] LABS: BUN/Creatinine Ratio 23 (6-26); Blood Urea Nitrogen 18 mg/dL (6-20); Calcium 7.3 mg/dL (8.6-10.3); Carbon Dioxide 25 mEq/L (23-29); Chloride 116 mEq/L (98-107); Glucose 172 mg/dL (70-105); Magnesium 2.9 mg/dL (1.6-2.6); Osmolality,Calculated 304 (280-300); Phosphorous 2.8 mg/dL (2.7-4.5); Potassium 4.3 mEq/L (3.5-5.1); Sodium 144 mEq/L (136-145); eGFR For African Americans > 60 (> 60); eGFR For Non-African Americans > 60 (> 60)
[2021-06-18] MEDS ORDERED: CeFAZolin 2 GM/120 ML BAG IVPB SCH (16:00)
[2021-06-18 16:03] LABS: ABG Base Excess -4 mEq/L (-2 to 3); ABG Chloride 101 mEq/L (98-107); ABG Glucose 136 mg/dL (60-95); ABG HCO3 21 mEq/L (21-27); ABG Ionized Calcium 1.02 mmol/L (1.15-1.35); ABG Oxygen Saturation 100 % (95-98); ABG PCO2 38 mmHg (35-45); ABG PH 7.35 pH Units (7.32-7.45); ABG PO2 580 mmHg (85-104); ABG TCO2 22 mEq/L (20-26)
[2021-06-18 16:28] LABS: ABG Base Excess -2 mEq/L (-2 to 3); ABG Chloride 99 mEq/L (98-107); ABG Glucose 153 mg/dL (60-95); ABG HCO3 23 mEq/L (21-27); ABG Ionized Calcium 1.05 mmol/L (1.15-1.35); ABG Oxygen Saturation 100 % (95-98); ABG PCO2 40 mmHg (35-45); ABG PH 7.37 pH Units (7.32-7.45); ABG PO2 559 mmHg (85-104); ABG TCO2 24 mEq/L (20-26)
[2021-06-18] MEDS: *HR* FentaNYL (PF) 100 MCG/2 ML VIAL IVP PRN ×2 (16:51→23:13)
[2021-06-18 16:56] LABS: ABG Base Excess -4 mEq/L (-2 to 3); ABG Chloride 102 mEq/L (98-107); ABG Glucose 176 mg/dL (60-95); ABG HCO3 22 mEq/L (21-27); ABG Ionized Calcium 1.09 mmol/L (1.15-1.35); ABG Oxygen Saturation 100 % (95-98); ABG PCO2 41 mmHg (35-45); ABG PH 7.34 pH Units (7.32-7.45); ABG PO2 545 mmHg (85-104); ABG TCO2 23 mEq/L (20-26)
[2021-06-18] MEDS: *HR* OxyCODONE/APAP 5/325 TABLET PO PRN (17:56)
[2021-06-18] MEDS: ceFAZolin 2,000 MG in 0.9 % Sodium Chloride 100 ML IVPB SCH (19:13)
[2021-06-18] MEDS ORDERED: Ondansetron 4 MG/2 ML VIAL ONE (19:40)
[2021-06-18 19:42] LABS: ABG Base Excess -2 mEq/L (-2 to 3); ABG HCO3 22 mEq/L (21-27); ABG Oxygen Saturation 97 % (95-98); ABG PCO2 35 mmHg (35-45); ABG PH 7.41 pH Units (7.32-7.45); ABG PO2 88 mmHg (85-104); ABG TCO2 23 mEq/L (20-26)
[2021-06-18] MEDS: Chlorhexidine Rinse 15 ML MOUTHWASH MM SCH (22:33)
[2021-06-18 23:59] LABS: ABG Ionized Calcium 1.13 mmol/L (1.15-1.35)
[2021-06-19] MEDS: niCARdipine 20 MG/200 ML MLS IVC SCH ×6 (02:15→15:39)
[2021-06-19 04:01] LABS: Basophils % 0.1 %; Hematocrit 31.7 % (37.5-50.1); Immature Granulocytes % 0.5 % (0-4); Immature Platelets 12.8 % (1.1-6.1); Lymphocytes # 1.2 K/mcL (0.6-4.6); Lymphocytes % 8.5 %; Mean Corpuscular HGB Conc 34.7 g/dL (31.6-35.5); Mean Corpuscular Hemoglobin 29.7 pg (28.0-33.3); Mean Corpuscular Volume 85.7 fL (83.0-100.0); Mean Platelet Volume 11.4 fL (9.4-12.4); Monocytes # 1.3 K/mcL (0.0-1.3); Monocytes % 9.2 %; Neutrophils # 11.6 K/mcL (1.6-8.9); Red Cell Distribution Width 14.1 % (11.5-14.5); Segmented Neutrophils % 81.7 %
[2021-06-19 04:04] LABS: BUN/Creatinine Ratio 24 (6-26); Blood Urea Nitrogen 18 mg/dL (6-20); Calcium 8.2 mg/dL (8.6-10.3); Carbon Dioxide 24 mEq/L (23-29); Chloride 110 mEq/L (98-107); Glucose 143 mg/dL (70-105); Magnesium 2.2 mg/dL (1.6-2.6); Osmolality,Calculated 300 (280-300); Platelet Count 73 K/mcL (140-400); Potassium 4.3 mEq/L (3.5-5.1); Sodium 143 mEq/L (136-145); White Blood Count 14.2 K/mcL (4.3-11.1); eGFR For African Americans > 60 (> 60); eGFR For Non-African Americans > 60 (> 60)
[2021-06-19] MEDS: *HR* OxyCODONE/APAP 5/325 TABLET PO PRN ×4 (04:08→17:31)
[2021-06-19 04:46] LABS: INR 1.1; Prothrombin Time 12.3 Seconds (9.4-12.1)
[2021-06-19 04:49] LABS: Activated Partial Thrombo Time 26.1 Seconds (26.0-36.0)
[2021-06-19] MEDS: ceFAZolin 2,000 MG in 0.9 % Sodium Chloride 100 ML IVPB SCH ×3 (05:13→18:04)
[2021-06-19 05:29] LABS: Platelet Estimate Marked Decrease (Normal)
[2021-06-19] MEDS: Norepinephrine 4 MG/254 ML IV.SOLN IVC SCH ×2 (07:44→12:52)
[2021-06-19] MEDS ORDERED: Heparin 15,000 UNIT in 0.9 % Sodium Chloride 500 ML IV ONE (07:45)
[2021-06-19] MEDS ORDERED: Norepinephrine 4 MG in 0.9 % Sodium Chloride 250 ML IVC PRN (07:45)
[2021-06-19] MEDS: *HR* FentaNYL (PF) 100 MCG/2 ML VIAL IVP PRN ×3 (07:48→17:35)
[2021-06-19] MEDS: Chlorhexidine Rinse 15 ML MOUTHWASH MM SCH ×2 (07:50→19:37)
[2021-06-19] MEDS: Pantoprazole 40 MG VIAL IVP SCH (07:50)
[2021-06-19] MEDS: Aspirin Enteric Coated 81 MG Tablet PO SCH (07:50)
[2021-06-19] MEDS ORDERED: del Nido Cardioplegia Solution PF SCH (08:00)
[2021-06-19] MEDS ORDERED: del Nido Cardioplegia Solution PF ONE (08:00)
[2021-06-19] MEDS ORDERED: Aspirin Enteric Coated 81 MG Tablet PO SCH (09:00)
[2021-06-19] MEDS: Bumetanide 1 MG/4 ML VIAL IVP SCH (16:03)
[2021-06-19] MEDS: Insulin LISPRO 300 UNITS/3 ML VIAL SUBQ SCH (16:32)
[2021-06-19] MEDS ORDERED: Dexmedetomidine HCl 400 MCG/100 ML MLS IVC SCH (19:30)
[2021-06-19] MEDS ORDERED: Insulin LISPRO 300 UNITS/3 ML VIAL SUBQ SCH (21:00)
[2021-06-20] MEDS: *HR* FentaNYL (PF) 100 MCG/2 ML VIAL IVP PRN (01:33)
[2021-06-20] MEDS: ceFAZolin 2,000 MG in 0.9 % Sodium Chloride 100 ML IVPB SCH (03:45)
[2021-06-20 03:56] LABS: VBG Ionized Calcium 1.11 mmol/L (1.15-1.35)
[2021-06-20 04:22] LABS: BUN/Creatinine Ratio 32 (6-26); Blood Urea Nitrogen 29 mg/dL (6-20); Calcium 8.2 mg/dL (8.6-10.3); Carbon Dioxide 29 mEq/L (23-29); Chloride 101 mEq/L (98-107); Glucose 200 mg/dL (70-105); Osmolality,Calculated 289 (280-300); Potassium 4.4 mEq/L (3.5-5.1); Sodium 134 mEq/L (136-145); eGFR For African Americans > 60 (> 60); eGFR For Non-African Americans > 60 (> 60)
[2021-06-20 04:56] LABS: Basophils % 0.4 %; Eosinophils % 0.1 %; Mean Platelet Volume 12.6 fL (9.4-12.4); Red Blood Count 3.31 M/mcL (4.19-5.50)
[2021-06-20 04:58] LABS: Basophils # 0.1 K/mcL (0.0-0.2); Immature Granulocytes % 0.7 % (0-4); Immature Platelets 15.3 % (1.1-6.1); Lymphocytes # 2.5 K/mcL (0.6-4.6); Mean Corpuscular HGB Conc 34.5 g/dL (31.6-35.5); Mean Corpuscular Hemoglobin 30.2 pg (28.0-33.3); Mean Corpuscular Volume 87.6 fL (83.0-100.0); Monocytes # 1.4 K/mcL (0.0-1.3); Monocytes % 8.5 %; Neutrophils # 12.6 K/mcL (1.6-8.9); Red Cell Distribution Width 14.6 % (11.5-14.5); Segmented Neutrophils % 75.3 %; White Blood Count 16.7 K/mcL (4.3-11.1)
[2021-06-20 05:56] LABS: Platelet Count 78 K/mcL (140-400)
[2021-06-20] MEDS: Pantoprazole 40 MG VIAL IVP SCH (07:15)
[2021-06-20] MEDS: niCARdipine 20 MG/200 ML MLS IVC SCH ×3 (07:15→09:46)
[2021-06-20] MEDS: Norepinephrine 4 MG/254 ML IV.SOLN IVC SCH ×2 (07:15→08:27)
[2021-06-20] MEDS: Chlorhexidine Rinse 15 ML MOUTHWASH MM SCH ×2 (07:16→21:14)
[2021-06-20] MEDS: Bumetanide 1 MG/4 ML VIAL IVP SCH ×2 (07:16→16:21)
[2021-06-20] MEDS: Aspirin Enteric Coated 81 MG Tablet PO SCH (07:16)
[2021-06-20] MEDS: Insulin LISPRO 300 UNITS/3 ML VIAL SUBQ SCH ×4 (08:26→21:15)
[2021-06-20] MEDS ORDERED: *HR* Acetaminophen w/Cod 300-30 mg 1 TAB TABLET PO PRN ×2 (08:44→10:37)
[2021-06-20] MEDS ORDERED: Insulin LISPRO 300 UNITS/3 ML VIAL SUBQ SCH ×2 (09:38)
[2021-06-20] MEDS ORDERED: Insulin DETEMIR 100 UNIT/ML X5UNITS SUBQ ONE (10:30)
[2021-06-20] MEDS ORDERED: *HR* FentaNYL (PF) 100 MCG/2 ML VIAL IVP PRN (10:37)
[2021-06-20] MEDS ORDERED: Ondansetron 4 MG/2 ML VIAL IVP PRN (10:37)
[2021-06-20] MEDS ORDERED: Potassium Chloride 40 MEQ/200 ML BAG IVPB PRN (10:37)
[2021-06-20] MEDS ORDERED: Aspirin Enteric Coated 81 MG Tablet PO SCH (10:37)
[2021-06-20] MEDS ORDERED: *HR* Dextrose 50 % in Water (Syg) 50 ML SYRINGE IVP PRN (10:37)
[2021-06-20] MEDS: *HR* Metformin 500 MG TABLET PO SCH ×2 (11:13→16:21)
[2021-06-20] MEDS: *HR* OxyCODONE/APAP 5/325 TABLET PO PRN ×2 (16:28→22:31)
[2021-06-20] MEDS: *HR* Heparin 5,000 UNIT/ML VIAL SQ SCH (17:05)
[2021-06-20] MEDS ORDERED: *HR* Heparin 5,000 UNIT/ML VIAL SQ SCH (18:00)
[2021-06-21 02:21] LABS: BUN/Creatinine Ratio 30 (6-26); Blood Urea Nitrogen 24 mg/dL (6-20); Calcium 8.4 mg/dL (8.6-10.3); Carbon Dioxide 29 mEq/L (23-29); Chloride 100 mEq/L (98-107); Glucose 140 mg/dL (70-105); Osmolality,Calculated 290 (280-300); Potassium 3.5 mEq/L (3.5-5.1); Sodium 137 mEq/L (136-145); eGFR For African Americans > 60 (> 60); eGFR For Non-African Americans > 60 (> 60)
[2021-06-21 02:40] LABS: Basophils # 0.1 K/mcL (0.0-0.2); Basophils % 0.4 %; Eosinophils # 0.1 K/mcL (0.0-0.6); Eosinophils % 0.5 %; Hematocrit 27.6 % (37.5-50.1); Hemoglobin 9.4 g/dL (12.9-16.9); Immature Granulocytes % 0.8 % (0-4); Immature Platelets 16.8 % (1.1-6.1); Lymphocytes # 2.8 K/mcL (0.6-4.6); Lymphocytes % 22.3 %; Mean Corpuscular HGB Conc 34.1 g/dL (31.6-35.5); Mean Corpuscular Hemoglobin 29.5 pg (28.0-33.3); Mean Corpuscular Volume 86.5 fL (83.0-100.0); Mean Platelet Volume 12.8 fL (9.4-12.4); Monocytes # 1.1 K/mcL (0.0-1.3); Monocytes % 8.5 %; Neutrophils # 8.6 K/mcL (1.6-8.9); Nucleated Red Blood Cells 0.2 /100 WBC (0); Platelet Count 74 K/mcL (140-400); Red Blood Count 3.19 M/mcL (4.19-5.50); Red Cell Distribution Width 13.9 % (11.5-14.5); Segmented Neutrophils % 67.5 %; White Blood Count 12.7 K/mcL (4.3-11.1)
[2021-06-21] MEDS: *HR* Heparin 5,000 UNIT/ML VIAL SQ SCH ×2 (05:11→17:27)
[2021-06-21] MEDS ORDERED: Amiodarone Premix 150 MG/100 ML BAG IVPB ONE ×2 (07:49→07:59)
[2021-06-21] MEDS ORDERED: Amiodarone Premix 360 MG/200 ML BAG IVC ONE ×2 (07:49→07:59)
[2021-06-21] MEDS: *HR* Metformin 500 MG TABLET PO SCH ×2 (08:18→17:27)
[2021-06-21] MEDS: *HR* GlipiZIDE XL (24 HR) 2.5 MG TABLET PO SCH (08:18)
[2021-06-21] MEDS: Pantoprazole 40 MG VIAL IVP SCH (08:18)
[2021-06-21] MEDS: Aspirin Enteric Coated 81 MG Tablet PO SCH (08:18)
[2021-06-21] MEDS: Chlorhexidine Rinse 15 ML MOUTHWASH MM SCH ×2 (08:19→20:51)
[2021-06-21] MEDS: Insulin LISPRO 300 UNITS/3 ML VIAL SUBQ SCH ×4 (08:20→20:50)
[2021-06-21] MEDS: Bumetanide 1 MG/4 ML VIAL IVP SCH ×2 (08:43→17:27)
[2021-06-21] MEDS: *HR* OxyCODONE/APAP 5/325 TABLET PO PRN ×3 (08:51→22:05)
[2021-06-21] MEDS ORDERED: Albumin 25% 25gram/100mL 25 GM/100 ML IV.SOLN IVPB ONE (13:39)
[2021-06-21] MEDS: Amiodarone Premix 360 MG/200 ML BAG IVC SCH (14:08)
[2021-06-22] MEDS: Amiodarone Premix 360 MG/200 ML BAG IVC SCH ×2 (00:36→12:53)
[2021-06-22 05:32] LABS: Basophils # 0.1 K/mcL (0.0-0.2); Basophils % 0.4 %; Eosinophils # 0.2 K/mcL (0.0-0.6); Eosinophils % 1.2 %; Hematocrit 26.9 % (37.5-50.1); Hemoglobin 9.4 g/dL (12.9-16.9); Immature Granulocytes % 0.5 % (0-4); Lymphocytes # 2.2 K/mcL (0.6-4.6); Lymphocytes % 17.4 %; Mean Corpuscular HGB Conc 34.9 g/dL (31.6-35.5); Mean Corpuscular Hemoglobin 29.9 pg (28.0-33.3); Mean Corpuscular Volume 85.7 fL (83.0-100.0); Mean Platelet Volume 11.7 fL (9.4-12.4); Monocytes % 7.5 %; Neutrophils # 9.4 K/mcL (1.6-8.9); Nucleated Red Blood Cells 0.7 /100 WBC (0); Platelet Count 117 K/mcL (140-400); Red Blood Count 3.14 M/mcL (4.19-5.50); Red Cell Distribution Width 14.1 % (11.5-14.5); White Blood Count 12.9 K/mcL (4.3-11.1)
[2021-06-22 05:53] LABS: BUN/Creatinine Ratio 30 (6-26); Blood Urea Nitrogen 22 mg/dL (6-20); Carbon Dioxide 26 mEq/L (23-29); Chloride 97 mEq/L (98-107); Glucose 159 mg/dL (70-105); Magnesium 1.8 mg/dL (1.6-2.6); Osmolality,Calculated 283 (280-300); Sodium 133 mEq/L (136-145); eGFR For African Americans > 60 (> 60); eGFR For Non-African Americans > 60 (> 60)
[2021-06-22] MEDS: *HR* OxyCODONE/APAP 5/325 TABLET PO PRN ×3 (06:14→20:15)
[2021-06-22] MEDS: *HR* Heparin 5,000 UNIT/ML VIAL SQ SCH ×2 (06:14→17:34)
[2021-06-22] MEDS: Aspirin Enteric Coated 81 MG Tablet PO SCH (08:04)
[2021-06-22] MEDS: Insulin LISPRO 300 UNITS/3 ML VIAL SUBQ SCH ×4 (08:05→20:20)
[2021-06-22] MEDS: *HR* Metformin 500 MG TABLET PO SCH ×2 (08:05→17:34)
[2021-06-22] MEDS: Pantoprazole 40 MG VIAL IVP SCH (08:05)
[2021-06-22] MEDS: *HR* GlipiZIDE XL (24 HR) 2.5 MG TABLET PO SCH (08:05)
[2021-06-22] MEDS: Chlorhexidine Rinse 15 ML MOUTHWASH MM SCH ×2 (08:05→20:15)
[2021-06-22] MEDS: Bumetanide 1 MG/4 ML VIAL IVP SCH ×2 (10:05→17:34)
[2021-06-23] MEDS: Amiodarone Premix 360 MG/200 ML BAG IVC SCH ×2 (00:06→13:40)
[2021-06-23 04:38] LABS: Basophils # 0.1 K/mcL (0.0-0.2); Basophils % 0.4 %; Eosinophils # 0.1 K/mcL (0.0-0.6); Eosinophils % 0.8 %; Hematocrit 27.8 % (37.5-50.1); Hemoglobin 9.8 g/dL (12.9-16.9); Immature Granulocytes % 1.3 % (0-4); Immature Platelets 13.3 % (1.1-6.1); Lymphocytes # 2.2 K/mcL (0.6-4.6); Mean Corpuscular HGB Conc 35.3 g/dL (31.6-35.5); Mean Corpuscular Hemoglobin 29.7 pg (28.0-33.3); Mean Corpuscular Volume 84.2 fL (83.0-100.0); Mean Platelet Volume 12.8 fL (9.4-12.4); Monocytes # 1.2 K/mcL (0.0-1.3); Monocytes % 7.9 %; Neutrophils # 11.7 K/mcL (1.6-8.9); Nucleated Red Blood Cells 1.9 /100 WBC (0); Platelet Count 176 K/mcL (140-400); Red Cell Distribution Width 13.6 % (11.5-14.5); Segmented Neutrophils % 75.6 %; White Blood Count 15.5 K/mcL (4.3-11.1)
[2021-06-23 05:59] LABS: BUN/Creatinine Ratio 39 (6-26); Blood Urea Nitrogen 32 mg/dL (6-20); Calcium 9.3 mg/dL (8.6-10.3); Carbon Dioxide 24 mEq/L (23-29); Chloride 94 mEq/L (98-107); Glucose 221 mg/dL (70-105); Osmolality,Calculated 286 (280-300); Potassium 4.4 mEq/L (3.5-5.1); Sodium 131 mEq/L (136-145); eGFR For African Americans > 60 (> 60); eGFR For Non-African Americans > 60 (> 60)
[2021-06-23] MEDS: *HR* Heparin 5,000 UNIT/ML VIAL SQ SCH ×2 (06:12→17:39)
[2021-06-23] MEDS: Aspirin Enteric Coated 81 MG Tablet PO SCH (07:54)
[2021-06-23] MEDS: Chlorhexidine Rinse 15 ML MOUTHWASH MM SCH ×2 (07:54→19:54)
[2021-06-23] MEDS: *HR* Metformin 500 MG TABLET PO SCH ×2 (07:54→17:38)
[2021-06-23] MEDS: *HR* GlipiZIDE XL (24 HR) 2.5 MG TABLET PO SCH (07:54)
[2021-06-23] MEDS: Pantoprazole 40 MG VIAL IVP SCH (07:54)
[2021-06-23] MEDS: Bumetanide 1 MG/4 ML VIAL IVP SCH (07:55)
[2021-06-23] MEDS: Insulin LISPRO 300 UNITS/3 ML VIAL SUBQ SCH ×4 (08:03→20:06)
[2021-06-23] MEDS: *HR* OxyCODONE/APAP 5/325 TABLET PO PRN ×3 (08:13→19:27)
[2021-06-23] MEDS ORDERED: *HR* Digoxin 0.5 MG/2 ML AMPUL IVP ONE (08:54)
[2021-06-23] MEDS ORDERED: *HR* OxyCODONE/APAP 5/325 TABLET PO ONE (21:44)
[2021-06-23] MEDS ORDERED: Ketorolac 30 MG/ML VIAL IVP ONE (21:45)
[2021-06-24 00:39] LABS: Basophils # 0.1 K/mcL (0.0-0.2); Basophils % 0.6 %; Eosinophils # 0.2 K/mcL (0.0-0.6); Eosinophils % 1.3 %; Immature Granulocytes % 1.6 % (0-4); Lymphocytes # 2.3 K/mcL (0.6-4.6); Lymphocytes % 19.4 %; Mean Corpuscular HGB Conc 33.3 g/dL (31.6-35.5); Mean Corpuscular Hemoglobin 28.9 pg (28.0-33.3); Mean Corpuscular Volume 86.8 fL (83.0-100.0); Mean Platelet Volume 11.7 fL (9.4-12.4); Monocytes # 1.1 K/mcL (0.0-1.3); Neutrophils # 8.1 K/mcL (1.6-8.9); Nucleated Red Blood Cells 1.7 /100 WBC (0); Platelet Count 195 K/mcL (140-400); Red Blood Count 3.11 M/mcL (4.19-5.50); Red Cell Distribution Width 13.9 % (11.5-14.5); Segmented Neutrophils % 68.1 %; White Blood Count 11.9 K/mcL (4.3-11.1)
[2021-06-24 00:48] LABS: BUN/Creatinine Ratio 32 (6-26); Blood Urea Nitrogen 35 mg/dL (6-20); Calcium 8.7 mg/dL (8.6-10.3); Carbon Dioxide 27 mEq/L (23-29); Chloride 94 mEq/L (98-107); Glucose 101 mg/dL (70-105); Osmolality,Calculated 282 (280-300); Phosphorous 4.4 mg/dL (2.7-4.5); Potassium 3.6 mEq/L (3.5-5.1); Sodium 132 mEq/L (136-145); eGFR For African Americans > 60 (> 60); eGFR For Non-African Americans > 60 (> 60)
[2021-06-24] MEDS: Amiodarone Premix 360 MG/200 ML BAG IVC SCH (03:13)
[2021-06-24] MEDS: *HR* Heparin 5,000 UNIT/ML VIAL SQ SCH (05:22)
[2021-06-24] MEDS ORDERED: Bumetanide 1 MG/4 ML VIAL IVP SCH (09:00)
[2021-06-24] MEDS: *HR* GlipiZIDE XL (24 HR) 2.5 MG TABLET PO SCH (09:42)
[2021-06-24] MEDS: Aspirin Enteric Coated 81 MG Tablet PO SCH (09:42)
[2021-06-24] MEDS: Chlorhexidine Rinse 15 ML MOUTHWASH MM SCH (09:43)
[2021-06-24] MEDS: Pantoprazole 40 MG VIAL IVP SCH (09:43)
[2021-06-24] MEDS: *HR* Metformin 500 MG TABLET PO SCH (09:45)
[2021-06-24] MEDS: Insulin LISPRO 300 UNITS/3 ML VIAL SUBQ SCH ×2 (09:51→11:43)
[2021-06-24] MEDS: *HR* OxyCODONE/APAP 5/325 TABLET PO PRN (11:43)
[2021-06-24 12:07] VITALS: BP 110/58; PULSE 67; TEMP 97.8; O2SAT 97
[2021-06-24] MEDS ORDERED: *HR* Amiodarone 200 MG TABLET PO SCH (12:15)
== END 2021-06-24 14:59 | disposition home or self-care (01) | DRG 219 ==
LOC: SAMDAY 06:38 → ICNU 13:04 → 2NNU 06-20 14:08
PROVIDERS: ADMIT Thoracic Surgery (Cardiothoracic Vascular Surgery); ATTEND Thoracic Surgery (Cardiothoracic Vascular Surgery)